=== PATIENT | female | born 1955 | race Caucasian/White ===

== ENCOUNTER 2018-12-11 11:07 | Emergency (ER) | payer OTHER ==
[2018-12-11 11:34] LABS: WHITE BLOOD COUNT 8.8 10^3/ul (4.8-10.8)
[2018-12-11 11:34] LABS: ADD MAN DIFF? NO; BASOPHIL # 0.1 10^3/ul (0.0-0.1); BASOPHILS % 0.7 % (0.0-2.0); EOSINOPHILS # 0.2 10^3/ul (0.0-0.5); EOSINOPHILS % 2.6 % (0.0-7.0); HEMATOCRIT 43.8 % (37.0-47.0); HEMOGLOBIN 14.3 g/dl (12.0-16.0); LYMPHOCYTES # 3.4 10^3/ul (0.8-2.9); LYMPHOCYTES % 38.2 % (15.0-51.0); MEAN CORPUSCULAR HEMOGLOBIN 28.4 pg (29.0-33.0); MEAN CORPUSCULAR HGB CONC 32.6 g/dl (32.0-37.0); MEAN CORPUSCULAR VOLUME 86.9 fl (82.0-101.0); MEAN PLATELET VOLUME 8.6 fl (7.4-10.4); MONOCYTE # 0.9 10^3/ul (0.3-0.9); MONOCYTES % 10.4 % (0.0-11.0); NEUTROPHIL # 4.2 10^3/ul (1.6-7.5); NEUTROPHILS % 47.9 % (39.0-77.0); PLATELET COUNT 359 10^3/UL (140-415); RED BLOOD COUNT 5.04 10^6/ul (4.20-5.40); RED CELL DISTRIBUTION WIDTH 13.9 % (11.5-14.5)
[2018-12-11] MEDS: IOHEXOL 100 ML (11:48)
[2018-12-11] MEDS: SOD CHLORIDE 0.9% 100 ML (11:49)
[2018-12-11 11:51] LABS: ANION GAP 6 (5-13); BLOOD UREA NITROGEN 13 mg/dl (7-20); CALCIUM 9.8 mg/dl (8.4-10.2); CARBON DIOXIDE 30 mmol/L (21-31); CHLORIDE 106 mmol/L (97-110); CHOL/HDL RATIO 3.9 RATIO; CHOLESTEROL 173 mg/dl (100-200); CREATINE KINASE 135 IU/L (23-200); CREATININE 0.79 mg/dl (0.44-1.00); Estimated GFR > 60 mL/min (>60); GLUCOSE 101 mg/dl (70-220); HDL CHOLESTEROL 44 mg/dl (35-98); LDL CHOLESTEROL,CALCULATED 85 mg/dl; POTASSIUM 3.9 mmol/L (3.5-5.1); SODIUM 142 mmol/L (135-144); TRIGLYCERIDES 222 mg/dl (0-149)
[2018-12-11 11:52] LABS: INR 0.92; PROTIME 12.5 Sec (11.9-14.9)
[2018-12-11 11:52] LABS: HEMOGLOBIN A1C 5.3 % (0-5.9)
[2018-12-11 11:53] LABS: PARTIAL THROMBOPLASTIN TIME 27.3 Sec (23.0-35.0)
[2018-12-11 11:58] LABS: ETHANOL < 10.0 mg/dl (0-0)
[2018-12-11 12:05] LABS: CK INDEX 0.9; CK-MB 1.22 ng/ml (0.0-2.4); TROPONIN-I < 0.012 ng/ml (0.000-0.120)
[2018-12-11] MEDS ORDERED: ONDANSETRON 4 MG INJ IV ×2 (12:30→15:00)
[2018-12-11] MEDS ORDERED: ACETAMINOPHEN 325 MG TAB PO ×2 (12:30→15:00)
[2018-12-11 12:40] LABS: ADD UMIC NO; UR ASCORBIC ACID NEGATIVE (NEGATIVE); UR BILIRUBIN (Dip) NEGATIVE (NEGATIVE); UR BLOOD (Dip) NEGATIVE (NEGATIVE); UR CLARITY CLEAR (CLEAR); UR COLOR COLORLESS (YELLOW); UR GLUCOSE (Dip) NEGATIVE (NEGATIVE); UR KETONES (Dip) NEGATIVE (NEGATIVE); UR LEUKOCYTE ESTERASE (Dip) NEGATIVE Leu/ul (NEGATIVE); UR NITRITE (Dip) NEGATIVE (NEGATIVE); UR SPECIFIC GRAVITY (Dip) 1.026 (1.003-1.030); UR TOTAL PROTEIN (Dip) NEGATIVE (NEGATIVE); UR UROBILINOGEN (Dip) NEGATIVE (NEGATIVE)
[2018-12-11] MEDS: ASPIRIN 325 MG TAB PO (12:49)
[2018-12-11 12:55] LABS: AMPHETAMINE/METHAMPHETAMINE Negative (NEGATIVE); BARBITURATES Negative (NEGATIVE); BENZODIAZEPINES Negative (NEGATIVE); CANNABINOIDS Negative (NEGATIVE); COCAINE Negative (NEGATIVE); OPIATES Negative (NEGATIVE)
[2018-12-11] MEDS ORDERED: morphine 2 MG INJ IV (15:00)
[2018-12-11] MEDS ORDERED: HYDROCODONE/APAP (5/325) TAB PO (15:00)
[2018-12-11] MEDS ORDERED: ZOLPIDEM 5 MG TAB PO (15:00)
[2018-12-11] MEDS ORDERED: NACL 0.9% 3 ML SYG IV (15:00)
[2018-12-11] MEDS ORDERED: hydrALAzine 20 MG INJ IV (15:00)
[2018-12-11] MEDS ORDERED: LORAZEPAM 0.5 MG TAB PO (16:00)
[2018-12-11] MEDS ORDERED: CALCIUM/VITAMIN D (500/200) TAB PO (21:00)
[2018-12-11] MEDS ORDERED: ATORVASTATIN 40 MG TAB PO (21:00)
[2018-12-11] MEDS ORDERED: FAMOTIDINE 20 MG TAB PO (21:00)
[2018-12-12 06:03] LABS: ADD MAN DIFF? NO
[2018-12-12 06:13] LABS: BASOPHIL # 0.1 10^3/ul (0.0-0.1); EOSINOPHILS # 0.3 10^3/ul (0.0-0.5); HEMATOCRIT 41.3 % (37.0-47.0); HEMOGLOBIN 13.7 g/dl (12.0-16.0); LYMPHOCYTES # 2.7 10^3/ul (0.8-2.9); LYMPHOCYTES % 38.9 % (15.0-51.0); MEAN CORPUSCULAR HEMOGLOBIN 28.8 pg (29.0-33.0); MEAN CORPUSCULAR HGB CONC 33.2 g/dl (32.0-37.0); MEAN CORPUSCULAR VOLUME 86.8 fl (82.0-101.0); MEAN PLATELET VOLUME 8.6 fl (7.4-10.4); MONOCYTE # 0.7 10^3/ul (0.3-0.9); NEUTROPHIL # 3.2 10^3/ul (1.6-7.5); PLATELET COUNT 330 10^3/UL (140-415); RED BLOOD COUNT 4.76 10^6/ul (4.20-5.40); RED CELL DISTRIBUTION WIDTH 13.9 % (11.5-14.5)
[2018-12-12 06:43] LABS: PHOSPHORUS 4.5 mg/dl (2.5-4.9)
[2018-12-12 06:43] LABS: MAGNESIUM 2.2 mg/dl (1.7-2.5)
[2018-12-12 06:51] LABS: FREE THYROXINE INDEX (Calc) 2.45 ug/ml (0.65-3.89); T3 UPTAKE 30.2 % (23.5-40.5); T4 (THYROXINE) 8.1 ug/dl (5.5-11.0)
[2018-12-12 06:56] LABS: ALANINE AMINOTRANSFERASE 30 IU/L (13-69); ALBUMIN 3.7 g/dl (3.3-4.9); ALBUMIN/GLOBULIN RATIO 1.08; ALKALINE PHOSPHATASE 78 IU/L (42-121); ANION GAP 7 (5-13); ASPARTATE AMINO TRANSFERASE 34 IU/L (15-46); BILIRUBIN,INDIRECT 0.9 mg/dl (0-1.1); BILIRUBIN,TOTAL 0.9 mg/dl (0.2-1.3); BLOOD UREA NITROGEN 15 mg/dl (7-20); CARBON DIOXIDE 27 mmol/L (21-31); CHLORIDE 109 mmol/L (97-110); CREATININE 0.88 mg/dl (0.44-1.00); Estimated GFR > 60 mL/min (>60); GLUCOSE 92 mg/dl (70-220); POTASSIUM 4.4 mmol/L (3.5-5.1); SODIUM 143 mmol/L (135-144); TOTAL PROTEIN 7.1 g/dl (6.1-8.1)
[2018-12-12] MEDS ORDERED: ASPIRIN (EC) 325 MG TAB PO (09:00)
[2018-12-12] MEDS ORDERED: ENOXAPARIN 40 MG/0.4 ML SYG SC (09:00)
[2018-12-12 16:56] LABS: ERYTHROCYTE SEDIMENTATION RATE 12 mm/Hr (0-30)
[2018-12-12 19:38] LABS: RAPID PLASMA REAGIN NONREACTIVE (NR)
== END 2018-12-12 17:15 | disposition home or self-care (01) ==
LOC: E/R 11:07
DX: G45.9 Transient cerebral ischemic attack, unspecified (principal); I10 Essential (primary) hypertension; R40.2142 Coma scale, eyes open, spontaneous, at arrival to emergency department; R40.2362 Coma scale, best motor response, obeys commands, at arrival to emergency department; R40.2252 Coma scale, best verbal response, oriented, at arrival to emergency department
CPT/HCPCS: 36415; 70450; 70496; 70498; 70552; 71045; 80048; 80053; 80061; 80307; 81003; 82550; 82553; 82962; 83036; 83735; 84100; 84436; 84479; 84484; 85025; 85610; 85651; 85730; 86592; 86850; 86900; 86901; 93005; 93306; 93880; 97161; 99285-25